=== PATIENT | male | born 1940 | race Caucasian/White ===

== ENCOUNTER 2017-12-28 07:34 | Emergency (ER) | payer MEDICARE ==
--- NOTE | 2017-12-28 08:35 | EDM.PDOC ---
ED HPI GENERAL MEDICAL PROBLEM - General Chief Complaint: Respiratory Problem Time Seen by Provider: 12/28/17 07:45 Source of Information: Reports: Patient, EMS, Family History Limitations: Reports: No Limitations - History of Present Illness INITIAL COMMENTS - FREE TEXT/NARRATIVE: 69-year-old male with advanced COPD and chronic renal failure has been having increased episodes of shortness of breath, chest tightness and abdominal pressure over the past several weeks. The humidity is very hard on him. He gets chest pressure when he gets short of breath, then he becomes very anxious and continues to be short of breath until he settles down. No fevers or chills, he does have a cough but it's been nonproductive for the past several months. Had a normal bowel movement 4 hours ago. Called EMS this morning because he just couldn't breathe well, when they arrived his O2 sats were in the low 90s and they gave him a DuoNeb in route. He is on chronic O2. He was in the clinic yesterday for lab for kidney failure follow-up, his GFR, creatinine and BUN were actually stable to slightly improved. Onset: Gradual Severity: Moderate Associated Symptoms: Reports: Chest Pain, Cough, Shortness of Breath, Other ( Significant anxiety). Denies: Confusion, Fever/Chills, Headaches, Loss of Appetite, Nausea/Vomiting - Related Data Allergies Allergy/AdvReac Type Severity Reaction Status Date / Time No Known Allergies Allergy Verified 12/28/17 07:38 Home Meds: Home Meds *Coqheart 1 tab PO DAILY 03/16/13 [History] *Liver Dtx Complex 1 tab PO DAILY 03/16/13 [History] Albuterol [Proventil HFA] 1 puff INH ASDIRECTED PRN 03/16/13 [History] Loratadine 10 mg PO DAILY 03/16/13 [History] Multivitamin [Multiple Vitamins] 1 each PO DAILY 03/16/13 [History] Nitroglycerin 1 tab SL ASDIRECTED PRN 03/16/13 [History] Tiotropium [Spiriva HandiHaler] 1 puff INH DAILY 03/16/13 [History] Ipratropium/Albuterol Sulfate [Duoneb 0.5 MG-3 MG/3 ML] 3 ml IH Q4H #90 ampul.neb 03/18/13 [Rx] *Vitamin C 1 tab PO DAILY 04/02/14 [History] *Vitamin D3 1 tab PO DAILY 06/25/13 [History] Acetaminophen 1,000 mg PO ASDIRECTED PRN 12/28/17 [History] Furosemide 20 mg PO DAILY 12/28/17 [History] Insulin Glarg,Human.Rec.Analog [Lantus] 20 units SQ ASDIRECTED 12/28/17 [History ] Pantoprazole [ProTONIX] 40 mg PO DAILY 12/28/17 [History] Sertraline [Zoloft] 100 mg PO DAILY 12/28/17 [History] amLODIPine [Norvasc] 5 mg PO DAILY 12/28/17 [History] glipiZIDE [Glipizide Xl] 10 mg PO BID 12/28/17 [History] Past Medical History HEENT History: Reports: Impaired Vision Cardiovascular History: Reports: High Cholesterol, Hypertension Respiratory History: Reports: COPD, SOB Gastrointestinal History: Reports: Chronic Constipation, GI Bleed Musculoskeletal History: Reports: Arthritis Psychiatric History: Reports: Anxiety, Depression, Panic Attack Endocrine/Metabolic History: Reports: Diabetes, Type II, Obesity/BMI 30+ Hematologic History: Reports: Blood Transfusion(s), Iron Deficiency Oncologic (Cancer) History: Reports: Lung - Infectious Disease History Infectious Disease History: Reports: Chicken Pox, Measles, Mumps - Past Surgical History Head Surgeries/Procedures: Reports: None Cardiovascular Surgical History: Reports: Coronary Artery Bypass Respiratory Surgical History: Reports: Other (See Below) GI Surgical History: Reports: Cholecystectomy, Colonoscopy, EGD Musculoskeletal Surgical History: Reports: None Oncologic Surgical History: Reports: None Dermatological Surgical History: Reports: None Social & Family History - Tobacco Use Smoking Status *Q: Former Smoker Used Tobacco, but Quit: Yes Month/Year Tobacco Last Used: 20 Second Hand Smoke Exposure: No - Caffeine Use Caffeine Use: Reports: None - Alcohol Use Days Per Week of Alcohol Use: 7 Number of Drinks Per Day: 1 Total Drinks Per Week: 7 - Recreational Drug Use Recreational Drug Use: No ED ROS GENERAL - Review of Systems Review Of Systems: See Below Constitutional: Denies: Fever, Chills HEENT: Reports: No Symptoms Respiratory: Reports: Shortness of Breath, Cough. Denies: Sputum Cardiovascular: Reports: Chest Pain (Slight chest pressure when he is short of breath) GI/Abdominal: Reports: Constipation (Recent constipation but improved over the past 24 hours). Denies: Abdominal Pain (Has a pressure in his stomach but not pain, feels "gassy") : Reports: No Symptoms, Other (Physicians are following his chronic kidney disease) Skin: Reports: Other (He has a persistent rash behind his left knee) Neurological: Denies: Dizziness, Headache Psychiatric: Reports: Anxiety ED EXAM, GENERAL - Physical Exam Exam: See Below Exam Limited By: No Limitations General Appearance: Alert, Anxious Eye Exam: Bilateral Eye: Normal Inspection Head: Atraumatic Respiratory/Chest: Respiratory Distress (When the patient arrived he was in mild respiratory distress with increased effort, his O2 sats were 100%. After he calmed down after x-rays he was back to baseline without treatment) Cardiovascular: Regular Rate, Rhythm. No: Tachycardia GI/Abdominal: Normal Bowel Sounds, Soft, Tender (Some discomfort diffusely to palpation but no focal guarding or rebound) Extremities: Pedal Edema (Trace symmetric edema) Neurological: Alert, Oriented, No Motor/Sensory Deficits. No: Confused Psychiatric: Anxious Skin Exam: Warm, Dry, Other (Does have a nonblanching plaque-like erythematous rash in the left knee) EKG INTERPRETATION Rhythm: NSR ST-T: Normal Course - Vital Signs Last Recorded V/S: Last Vital Signs Temp 96.6 F 12/28/17 08:29 Pulse 78 12/28/17 08:29 Resp 22 H 12/28/17 08:29 BP 150/69 H 12/28/17 08:29 Pulse Ox 99 12/28/17 08:29 - Orders/Labs/Meds Labs: Laboratory Tests 12/28/17 12/28/17 Range/Units 07:58 07:58 WBC 6.7 (4.5-11.0) K/uL RBC 3.22 L (4.30-5.90) M/uL Hgb 9.1 L (12.0-15.0) g/dL Hct 30.1 L (40.0-54.0) % MCV 94 (80-98) fL MCH 28 (27-31) pg MCHC 30 L (32-36) % Plt Count 242 (150-400) K/uL Neut % (Auto) 73 H (36-66) % Lymph % (Auto) 16 L (24-44) % Lake % (Auto) 9 H (2-6) % Eos % (Auto) 2 (2-4) % Baso % (Auto) 0 (0-1) % Troponin I 0.085 H* (0.000-0.056) ng/mL Meds: Medications Discontinued Medications Generic Name Dose Route Start Last Admin Trade Name Rubens PRN Reason Stop Dose Admin Methylprednisolone Sodium Succinate 125 mg 12/28/17 08:44 12/28/17 08:50 Solu-Medrol IM 12/28/17 08:45 125 mg ONETIME ONE Administration - Re-Assessments/Exams Free Text/Narrative Re-Assessment/Exam: 12/28/17 08:35 Two-view chest x-ray and flat and upright abdomen were obtained. I have no comparable chest x-rays for the last 5 years, it looks like there is a small amount of perihilar congestion but no evidence of failure. Abdomen films are normal. 12/28/17 08:36 White count is normal, hemoglobin is 9.1. Hemoglobin was 10.0 a year ago when reviewing the clinic records. Troponin was 0.08 likely due to his chronic renal failure 12/28/17 08:43 Patient continued to feel at his baseline. Patient will be given 125 mg of IM Solu-Medrol, started 60 mg of prednisone daily for the next 4 days, and informed him that this will increase his glucose levels while on steroid treatment. He'll be placed on a course of Zithromax, and given 10 Ativan to use one every 4-6 hours as needed for increased anxiety. He'll return anytime if worsening. Departure - Departure Time of Disposition: 09:29 Disposition: Home, Self-Care 01 Condition: Fair Clinical Impression: COPD exacerbation, Bronchitis, Anxiety about health - Discharge Information Instructions: Shortness of Breath, Adult, [id number] Referrals: Ac Mercado MD [Primary Care Provider] - Forms: ED Department Discharge Care Plan Goals: Continue your current medications, and add prescriptions from the emergency room as prescribed. Return anytime if worsening despite treatment.
[2017-12-28] MEDS ORDERED: methylPREDNISolone Sodium Succinate 125 MG/2 ML SDV IM ONE (08:44)
--- NOTE | 2017-12-28 08:59 | CR ---
CHEST: 2 view CLINICAL HISTORY:SOB COMPARISON:2013 FINDINGS: Heart size and pulmonary vascularity are normal. Patient has had previous sternotomy. Ther e are atherosclerotic changes in the aorta. Lungs are hyperaerated there is some patchy density in th e right middle lobe. This may be scarring and/or atelectasis. Infiltrate is felt less likely. Impression: Emphysematous changes Patchy right middle lobe density may represent scarring or atelectasis. Infiltrate is not excluded. S hort-term follow-up recommended
--- NOTE | 2017-12-28 10:10 | CR ---
Abdomen 2V AP Flat Upright CLINICAL HISTORY: Pain FINDINGS: There is moderate breathing motion. No free air is identified. Small intestinal gas pattern is nonacute. There is moderate retained stool. There are surgical clips in right upper quadrant IMPRESSION: Nonacute intestinal gas pattern Moderate fecal retention
== END 2017-12-28 09:29 | disposition home or self-care (01) ==
LOC: JP.ED 07:34
DX: J44.1 Chronic obstructive pulmonary disease with (acute) exacerbation (principal); J40 Bronchitis, not specified as acute or chronic; F41.9 Anxiety disorder, unspecified; I12.9 Hypertensive chronic kidney disease with stage 1 through stage 4 chronic kidney disease, or unspecified chronic kidney disease; N18.9 Chronic kidney disease, unspecified; E11.22 Type 2 diabetes mellitus with diabetic chronic kidney disease; E78.00 Pure hypercholesterolemia, unspecified; Z79.4 Long term (current) use of insulin; Z79.899 Other long term (current) drug therapy; Z87.891 Personal history of nicotine dependence
CPT/HCPCS: 36415; 71046; 74019; 84484; 85025; 96372; 99284; J2930